=== PATIENT | female | born 1960 | race Caucasian/White ===

== ENCOUNTER 2017-01-16 10:13 | Emergency (ER) | payer MEDICAID ==
--- NOTE | 2017-01-16 11:07 | EDPHY ---
H & P Stated Complaint: tooth infection to left lower. Time Seen by Provider: 01/16/17 11:07 HPI/ROS: HPI: This is a 56-year-old female who presents Chief Complaint: tooth infection to left lower. Location: Left molar Quality: Pain Duration: 1 day Signs and Symptoms: No fever, no jaw swelling, no trismus common no difficulty swallowing, no difficulty eating, no sensitivity to hot or cold foods Timing: Sudden, constant Severity: Moderate to severe Context: Patient reports that last night she had sudden onset of left molar pain that was nonradiating in nature and not affected by hot or cold foods. She denies any trauma or injury. She called her friend who is is a retired dentist advises likely a tooth infection or needs a root canal. Patient does not have a dentist in [place] as of yet. Modifying Factors: None Comment: ROS: see HPI Constitutional: No fever, no chills, no weight loss Eyes: No blurred vision Respiratory: No shortness of breath, no cough Cardiovascular: No chest pain Gastrointestinal: No nausea, no vomiting, no diarrhea Genitourinary: No dysuria Extremities: No myalgias Neurologic: No weakness, no numbness Skin: No rashes Hematologic: No bruising, no bleeding MEDICAL/SURGICAL/SOCIAL HISTORY: Medical history: Generally healthy. Does not take any regular medications. Surgical history: D employed [employer] Social history: CONSTITUTIONAL: awake and alert, no obvious distress HEENT: Atraumatic and normocephalic, PERRL, EOMI. Tympanic membranes clear. Oropharynx clear, left bottom molar show some mild tenderness to palpation; no gingival swelling; no jaw swelling. No tenderness with palpation over TMJ. No malocclusion. no exudate and moist pink mucosa. Airway patent. No lymphadenopathy. No meningismus. Cardiovascular: Normal S1/S2, regular rate, regular rhythm, without murmur rub or gallop. PULMONARY/CHEST: Symmetrical and nontender. Clear to auscultation bilaterally. Good air movement. No accessory muscle usage. ABDOMEN: Soft, nondistended, nontender, no rebound, no guarding, no peritoneal signs, no masses or organomegaly. No CVAT. EXTREMITIES: 2/2 pulses, strength 5/5, no deformities, no clubbing, no cyanosis or edema. NEUROLOGICAL: no focal neuro deficits. GCS 15. SKIN: Warm and dry, no erythema. no rash. Good capillary refill. Source: Patient Exam Limitations: No limitations - Personal History Current Tetanus Diphtheria and Acellular Pertussis (TDAP): Yes - Medical/Surgical History Hx Asthma: No Hx Chronic Respiratory Disease: No Hx Diabetes: No Hx Cardiac Disease: No Hx Renal Disease: No Hx Cirrhosis: No Hx Alcoholism: No Hx HIV/AIDS: No Hx Splenectomy or Spleen Trauma: No Other PMH: Breast CA. - Social History Smoking Status: Never smoked Constitutional: Initial Vital Signs Temperature (C) 36.9 C 01/16/17 10:18 Heart Rate 90 01/16/17 10:18 Respiratory Rate 16 01/16/17 10:18 Blood Pressure 146/89 H 01/16/17 10:18 O2 Sat (%) 99 01/16/17 10:18 O2 Delivery Mode Room Air Allergies/Adverse Reactions: Sulfa (Sulfonamide Antibiotics) Allergy (Verified 06/17/12 11:29) Home Medications: Medication Instructions Recorded IBUPROFEN 09/28/15 Loratadine PRN 09/28/15 Tamoxifen Citrate 09/28/15 Clindamycin HCl [Clindamycin] 300 mg PO TID #30 cap 01/16/17 traMADol [Ultram 50 mg (*)] 50 mg PO Q4 PRN #10 tab 01/16/17 Medical Decision Making ED Course/Re-evaluation: No overt signs of facial cellulitis, Ej's angina, airway compromise, dehydration Patient given clindamycin and Ultram with and advised to follow up with dentist [facility]. Differential Diagnosis: Differential diagnosis includes but is not limited to toothache, tooth abscess, TMJ strain, sialoadenitis. Departure - Departure Disposition: Home, Routine, Self-Care Clinical Impression: Odontalgia Condition: Good Instructions: Dental Abscess (ED), Toothache (ED) Referrals: Aida Castro MD [Primary Care Provider] - As per Instructions Prescriptions: Clindamycin HCl [Clindamycin] 300 mg PO TID #30 cap traMADol [Ultram 50 mg (*)] 50 mg PO Q4 PRN #10 tab PRN Reason: Pain, Severe
[2017-01-16 11:30] VITALS: BP 140/82; PULSE 84; RESP 18; TEMP 98.2; O2SAT 97
== END 2017-01-16 11:28 | disposition home or self-care (01) ==
DX: K08.89 Other specified disorders of teeth and supporting structures (principal); Z85.3 Personal history of malignant neoplasm of breast

== ENCOUNTER → 2017-01-28 | Outpatient (CLI) | payer MEDICAID | LOC: FIMAGING 11:57 | PROVIDERS: ATTEND Surgery | DX: Z12.31 Encounter for screening mammogram for malignant neoplasm of breast (principal); Z85.3 Personal history of malignant neoplasm of breast | CPT/HCPCS: G0202 ==

== ENCOUNTER → 2018-02-19 | Outpatient (CLI) | payer BC | LOC: FIMAGING 10:57 | PROVIDERS: ATTEND Internal Medicine Hematology & Oncology | DX: C50.511 Malignant neoplasm of lower-outer quadrant of right female breast (principal); N60.01 Solitary cyst of right breast ==

== ENCOUNTER → 2018-04-14 | Outpatient (CLI) | payer BC | LOC: FIMAGING 10:15 | PROVIDERS: ATTEND Internal Medicine Hematology & Oncology | DX: Z13.828 Encounter for screening for other musculoskeletal disorder (principal); Z85.3 Personal history of malignant neoplasm of breast ==